=== PATIENT | male | born 1945 | race Caucasian/White ===

== ENCOUNTER 2023-09-25 12:06 | Outpatient (CLI) | payer MEDICARE ==
[~2023-09-25 12:06] MED LIST: Iopamidol 370 76% 100 ML VIAL ONE
== END 2023-09-25 12:07 | disposition home or self-care (01) ==
LOC: BICCT 12:06
PROVIDERS: ATTEND Surgery
DX: K43.2 Incisional hernia without obstruction or gangrene (principal); K43.9 Ventral hernia without obstruction or gangrene; Z90.49 Acquired absence of other specified parts of digestive tract
CPT/HCPCS: 74177; 82565; Q9967